=== PATIENT | female | born 1975 | race Caucasian/White ===

== ENCOUNTER 2017-03-08 23:39 | Emergency (ER) | payer OTHER, MEDICAID ==
[2017-03-08 23:46] VITALS: BP 121/80; PULSE 97; RESP 18; TEMP 98.1; O2SAT 97
--- NOTE | 2017-03-08 23:56 | EDPHY ---
H & P Time Seen by Provider: 03/08/17 23:41 HPI/ROS: CHIEF COMPLAINT: "I think I have an ingrown toenail" HISTORY OF PRESENT ILLNESS: 41-year-old homeless female complaining of painful right medial great toe for the past 5 days. Atraumatic. No fever no chills no nausea or vomiting. Tetanus up-to-date. PRIMARY CARE PROVIDER: Soraya Martinezmont REVIEW OF SYSTEMS: A ten point review of systems was performed and is negative with the exception of the items mentioned in the HPI PHYSICAL EXAM (Prior to examination, patient consented to physical exam, hands were washed and my usual and customary physical exam procedures followed) 1) GENERAL: Well-developed, well-nourished, alert and oriented. Appears to be in no acute distress. 2) HEAD: Normocephalic 3) HEENT: sclera anicteric 4) LUNGS: Breathing comfortably. 5) SKIN: ingrown toenail with localized erythema. Lymphangitic streaking 6) MUSCULOSKELETAL: right medial great toe ingrown toenail. Localized erythema with no lymphangitic streaking. No crepitus 7) NEUROLOGIC: Full sensation Smoking Status: Heavy smoker Constitutional: Initial Vital Signs Temperature (C) 36.7 C 03/08/17 23:44 Heart Rate 97 03/08/17 23:44 Respiratory Rate 18 03/08/17 23:44 Blood Pressure 121/80 H 03/08/17 23:44 O2 Sat (%) 97 03/08/17 23:44 O2 Delivery Mode Room Air Allergies/Adverse Reactions: aspirin [Aspirin] Allergy (Severe, Verified 03/06/15 18:46) Anaphylaxis kiwi [Kiwi (Actinidia Chinensis)] Allergy (Severe, Verified 03/06/15 18:46) Anaphylaxis gabapentin Allergy (Mild, Verified 07/11/15 12:37) latex [Latex] Allergy (Mild, Verified 03/06/15 18:46) Other-Enter Comments duloxetine HCl [From Cymbalta] Allergy (Unknown, Verified 03/06/15 18:46) Unknown fluoxetine HCl [From Prozac] Allergy (Unknown, Verified 03/06/15 18:46) Other-Enter Comments ibuprofen [Ibuprofen] Allergy (Verified 03/06/15 18:46) Anaphylaxis Home Medications: Medication Instructions Recorded buPROPion SR [Wellbutrin Sr] 150 mg PO 03/06/15 Cephalexin [Keflex] 500 mg PO QID 10 Days 03/08/17 MDM/Departure - MDM Procedures: Procedure: Partial nail removal Indication: ingrown toenail great toe Indications risks benefits discussed with patient. Patient provided verbal consent. Usual customary sterile technique used. 1% plain lidocaine digital nerve block by by myself achieving anesthesia distally. The medial 3rd of the nail was unroofed and removed. Nail dressed with adaptic, antibiotic ointment, sterile dressing. Patient tolerated procedure well ED Course/Re-evaluation: Patient has evidence of ingrown toenail. The medial aspect of the toenail was removed. We discussed proper nail health. She has no history of chronic skin infections or history of MRSA according the patient. She is started on Keflex. Recommend warm compresses and elevation. Recommend follow up with primary care provider on Friday (today is Friday). Given usual and customary wound precautions instructions. She feels comfortable being discharged. - Depart Disposition: Home, Routine, Self-Care Clinical Impression: Ingrown toenail Condition: Good Instructions: Ingrown Nail (ED) Additional Instructions: Return to the ER if you develop redness, swelling, discharge, warmth to the wound, red streaks going up your leg, or any other symptoms that concern you. Prescriptions: Cephalexin [Keflex] 500 mg PO QID 10 Days Referrals: Devika Yin PA [Primary Care Provider] - 03/10/17
[2017-03-09] MEDS ORDERED: CEPHALEXIN 500 MG CAP PO SCH
== END 2017-03-09 00:20 | disposition home or self-care (01) ==
PROC: 0HBRXZZ Excision of Toe Nail, External Approach (ICD-10-PCS; principal; 2017-03-08)
DX: L60.0 Ingrowing nail (principal); F17.200 Nicotine dependence, unspecified, uncomplicated; Z91.040 Latex allergy status

== ENCOUNTER 2018-04-09 | Inpatient (IN) | payer OTHER, MEDICAID | END 2018-04-12 14:13 | DRG 470 | PROVIDERS: ADMIT Orthopaedic Surgery | PROC: 0SR904Z Replacement of Right Hip Joint with Ceramic on Polyethylene Synthetic Substitute, Open Approach (ICD-10-PCS; principal; 2018-04-09) | PROC: 8E0Y0CZ Robotic Assisted Procedure of Lower Extremity, Open Approach (ICD-10-PCS; principal; 2018-04-09) | DX: M16.11 Unilateral primary osteoarthritis, right hip (principal); F32.9 Major depressive disorder, single episode, unspecified; Z72.0 Tobacco use | CPT/HCPCS: 97110-GP; 97116-GP; 97161-GP; 97166-GO; 97535-GO; G8978-GP-CJ; G8979-GP-CI; G8987-GO-CK; G8988-GO-CI; J0171; J1100; J1170; J1650; J2250; J2270; J2704; J2795; J3010; J3370 ==